=== PATIENT | female | born 1985 | race Caucasian/White ===

== ENCOUNTER 2018-09-20 00:02 | Observation (INO) | payer SELFPAY ==
[~2018-09-20] VITALS: Ht 160 cm; Wt 74.1 kg
[2018-09-20] VITALS (9 sets, daily range): BP systolic 108–133; BP diastolic 53–85
[2018-09-20 03:54] LABS: HEMATOCRIT 39.6 % (36.0-47.0); HEMOGLOBIN 12.9 g/dl (12.0-15.5); MEAN CORPUSCULAR HEMOGLOBIN 30.5 pg (27.0-33.0); MEAN CORPUSCULAR HGB CONC 32.6 g/dl (32.0-36.5); MEAN CORPUSCULAR VOLUME 93.6 fl (80.0-96.0); PLATELET COUNT, AUTOMATED 167 10^3/uL (150-450); RED BLOOD COUNT 4.23 10^6/uL (4.00-5.40); WHITE BLOOD COUNT 7.3 10^3/uL (4.0-10.0)
[2018-09-20 04:16] LABS: BLOOD UREA NITROGEN 12 MG/DL (7-18); CALCIUM LEVEL 7.9 MG/DL (8.5-10.1); CARBON DIOXIDE LEVEL 26 MEQ/L (21-32); CHLORIDE LEVEL 113 MEQ/L (98-107); CREATININE FOR GFR 0.58 MG/DL (0.55-1.30); GLOMERULAR FILTRATION RATE > 60.0 (>60); GLUCOSE, FASTING 104 MG/DL (70-100); POTASSIUM SERUM 4.4 MEQ/L (3.5-5.1); SODIUM LEVEL 143 MEQ/L (136-145)
[2018-09-20] MEDS ORDERED: ESCI10TA2 PO (04:36)
[2018-09-20] MEDS ORDERED: D3 S20002 PO (04:36)
[2018-09-20] MEDS: NS 1,000 ML IV SCH ×2 (05:31→15:57)
--- NOTE | 2018-09-20 05:33 | HPEPDOC ---
General Date of Admission Sep 20, 2018 at 02:41 Date of Service: Sep 20, 2018 Attending Physician: JANELLE KUNZ MD Chief Complaint The patient is a 33-year-old female admitted with a reason for visit of SVT. Source: Patient Exam Limitations: No limitations Timing/Duration: 24 hours History of Present Illness Ms. Maradiaga is a 33-year-old female who presents to [facility] as a direct admission from [facility]. Patient states that she has a history of supraventricular tachycardia (SVT) and she sustained an episode prior to her presentation to [facility]. She describes her attacks as feeling as though her heart goes out of rhythm. She uses several "tricks" at home, but nothing was terminating them so after over an hour she presented to the hospital for further evaluation. She was placed on a heart monitor and found to have a heart rate of 240. She states that she was given Metoprolol 5mg IV, Adenosine 5mg IV, Adenosine 12mg IV, and Cardizem 25mg IV before her rate converted to a junctional rhythm and then finally reverted back to sinus rhythm. However, patient states that although her heart rate decreased so did her blood pressure. She developed crampy abdominal pain with nausea and diarrhea. The hospital administered IV fluids and it was advised that patient be transferred to [facility] under the care of Dr. Kunz, the admitting hospitalist for possible consultation with a cabinetmaker supervisor. Patient states that she has had SVT her entire life. She did have a consultation with a cabinetmaker supervisor when she was 13 years old and wore a heart monitor for 1 week and had an echocardiogram completed. Both tests, as far the patient can recall, were negative. She has presented over the years to the ED for SVT. Her first visit resulted in her following up with her primary care provider at that time who initiated referrals to cardiology; however, nothing ever came to fruition as patient's primary care provider terminated his practice. Her second visit to the ED was after the of her youngest son (who is 1 years old). She was put on Metoprolol at that time. This current presentation is her third for evaluation of SVT. Incidentally, patient has an appointment with Dr. Rangel, pickle processor in [place], for evaluation for rheumatoid arthritis. She is experiencing joint pain, specifically in her right index finger and is currently unable to flex the finger completely. She has previously experienced searing type pains along the dorsal aspect of her right foot, along her right knee, and along her low back. She states that she has been evaluated for Lupus which was negative and that her SHAD was negative as well. She has a strong family history of fibromyalgia. Current ICU evaluation reveals somewhat soft blood pressure of 108/66. Her labs are stable. Hospitalist accepted patient in transfer from [facility] for further evaluation and possible consultation with cardiology. Home Medications Scheduled Cholecalciferol (Vitamin D3) (Vitamin D3) 2,000 Unit Capsule, 2,000 UNIT PO DAILY, (Reported) TAKES AT 1200 Diltiazem HCl (Cardizem) 30 Mg Tablet, 1 TAB PO DAILY Escitalopram Oxalate (Escitalopram Oxalate) 10 Mg Tablet, 10 MG PO QHS, (Reported) Allergies Coded Allergies: Penicillins (Verified Allergy, Intermediate, TROUBLE SWALLOWING, 09/20/18) fluticasone (Verified Allergy, Intermediate, HIVES, 09/20/18) Past Medical History Medical History 1. SVT 2. Depression 3. Vitamin D deficiency Surgical History 1. Diagnostic arthroscopy 2. Left eye surgery during childhood 3. Vaginal deliveries x4 Family History Father: Alive, 56, arthritis, pre-DM Mother: Alive, 56, healthy Siblings - Sister: x1, alive, 33, healthy - Brother: x1, alive, 31, healthy Social History * Smoker: current smoker (< 1/2 PPD) Alcohol: occationally (wine) Drugs: sav[place] Lives with her José Luis gilbert and her 4 biological children and her one step- daughter. Her children vary in age from 13 to 1. She works as a [employer] teacher. She currently smokes < 1 PPD. She consumes wine. She does not use illicit drugs. A-FIB/CHADSVASC A-FIB History Current/History of A-Fib/PAF?: No Review of Systems Constitutional: Denies: Chills, Fever, Night Sweats, Weakness Eyes: Reports: Vision change (tunnel vision); Denies: Conjunctivae inflammation, Eyelid inflammation, Redness ENT: Reports: Head Aches, Other Symptoms (hearing changes); Denies: Dysphagia, Sinus Congestion, Post Nasal Drip, Sore Throat, Epistaxis Skin: Denies: Rash, Lesions Pulmonary: Denies: Dyspnea, Cough, Pleuritic Chest Pain Cardiovascular: Reports: Palpitations; Denies: Chest Pain, Orthopnea, Paroxysmal Noc. Dyspnea, Edema, Lt Headedness Gastrointestinal: Reports: Nausea, Abdominal Pain, Diarrhea; Denies: Vomiting, Constipation, Melena, Hematochezia Genitourinary: Denies: Dysuria, Frequency, Incontinence, Hematuria, Retention Hematologic: Denies: Bruising, Bleeding Excessively Musculoskeletal: Reports: Back Pain, Joint Pain, Muscle Pain; Denies: Neck Pain Neurological: Reports: Weakness; Denies: Numbness Physical Examination General Exam: Positive: Alert, Cooperative, No Acute Distress Eye Exam: Positive: PERRLA, Conjunctiva & lids normal, EOMI; Negative: Sclera icteric, Ptosis ENT Exam: Positive: Atraumatic, Mucous membr. moist/pink, Pharynx Normal, Tongue Midline, Nares Patent; Negative: Pharyngeal Edema Neck Exam: Positive: Supple, +2 carotid pulse wo bruit; Negative: JVD, thyromegaly, Lymphadenopathy Chest Exam: Positive: Clear to auscultation, Normal air movement; Negative: Rales, Rhonchi, Wheezing, Diminished Heart Exam: Positive: Rate Normal, Regular Rhythm, Normal S1, Normal S2; Negative: Gallops, Murmurs, Rubs Telemetry: Positive: Sinus Abdomen Exam: Positive: Normal bowel sounds, Soft; Negative: Tenderness, Hepatospenomegaly, Mass, Hernia Extremity Exam: Positive: Normal pulses; Negative: Clubbing, Cyanosis, Edema, Tenderness, Swelling Skin Exam: Negative: Rash, Lesion Neuro Exam: Positive: Normal Speech, Cranial Nerves 3-12 NL Vital Signs Vital Signs Date Time Temp Pulse Resp B/P (MAP) Pulse Ox O2 Delivery O2 Flow Rate FiO2 09/20/18 04:00 97.9 70 16 108/66 (80) 99 Height (in): 63 Weight (kg): 74.1 BMI (kg): 28.9 Laboratory Data Labs 24H Laboratory Tests 2 09/20/18 03:45: Nucleated Red Blood Cells % (auto) 0.0, Anion Gap 4L, Glomerular Filtration Rate > 60.0, Blood Urea Nitrogen 12, Creatinine 0.58, Sodium Level 143, Potassium Level 4.4, Chloride Level 113H, Carbon Dioxide Level 26, Calcium Level 7.9L CBC/BMP Laboratory Tests 09/20/18 03:45 Red Blood Count 4.23, Mean Corpuscular Volume 93.6, Mean Corpuscular Hemoglobin 30.5, Mean Corpuscular Hemoglobin Concent 32.6, Red Cell Distribution Width 11.9, Calcium Level 7.9 L Plan / VTE VTE Prophylaxis Ordered?: Yes (Lovenox 40mg SQ daily) Plan Plan 1. SVT Converted to NSR with Metoprol, Adenosine, Cardizem NS @ 100 mLs/hr Consider cardiology consult ICU for observation Echocardiogram Monitor VS, labs 2. HoTN 2/2 to aforementioned NS @ 100 mLs/hr IVF resuscitated at [facility] Monitor VS 3. Depression Continue Escitalopram 10mg PO QHS 4. Vitamin D deficiency Continue Vitamin D 2,000 units PO daily 5. Tobacco dependence Smoking cessation counseling Offered nicotine replacement patch; however, patient declined 6. Joint pain Appointment with Dr. Rangel, rheumatology, 11/01/2018 Disposition Admit: ICU Anticipated hospitalization: Observation IVF: Continue (NS @ 100 mLs/hr) Diet: Continue Current (regular) Activity: Continue Current (activity as tolerated) Diagnostics: Check Labs, Repeat Labs in AM, TTE Anticipated Discharge: Home GME ATTESTATION GME ATTESTATION My faculty preceptor for this patient encounter was physically present during the encounter and was fully available. All aspects of the patient interview, examination, medical decision making process, and medical care plan development were reviewed and approved by the faculty preceptor. The faculty preceptor is aware and concurs with the plan as stated in the body of this note and will attest to such by his/her cosignature. ATTENDING NOTE ATTENDING ATTESTATION: I performed a history and physical examination of the patient and discuss the management with the resident/SUPERVISOR REAL ESTATE OFFICE. I reviewed the resident's note and agree with the documented findings and plan of care. BENNIE JULIEN DO Sep 20, 2018 05:33 JANELLE KUNZ MD Sep 20, 2018 19:33
[2018-09-20] MEDS ORDERED: METOPROLOL TART 12.5 MG PER 1/2 TAB PO SCH (09:00)
[2018-09-20] MEDS ORDERED: ENOXAPARIN 40 MG/0.4 ML SYRINGE (J1650) SC SCH ×2 (09:00)
[2018-09-20] MEDS ORDERED: VITAMIN D 1,000 INTERNATIONAL UNITS TABLET PO SCH (12:00)
--- NOTE | 2018-09-20 13:47 | IPNPDOC ---
Text Note Date of Service The patient was seen on 09/20/18. NOTE S: 33 yo female admitted with SVT and iatrogenic hypotension - now rate contro lled. see H&P for details O: Vitals as below/stable General: pleasant, NAD, AAOx3 HRRR LCTA A/P:SVT paroxysmal - consult Dr Ferguson and case discussed. Await echo. start metoprolol 12.5mg with hold parameters. Discussed with patient and states she had been on metoprolol in past and experienced extreme fatigue. Consider low dose cardizem for rescue if SVT reoccurs. Possible discharge this evening. transfer to M/S with tele VS,Shemar, I+O VS, Shemar, I+O Laboratory Tests 09/20/18 03:45 Red Blood Count 4.23, Mean Corpuscular Volume 93.6, Mean Corpuscular Hemoglobin 30.5, Mean Corpuscular Hemoglobin Concent 32.6, Red Cell Distribution Width 1 1.9, Calcium Level 7.9 L Vital Signs Date Time Temp Pulse Resp B/P (MAP) Pulse Ox O2 Delivery O2 Flow Rate FiO2 09/20/18 04:00 97.9 70 16 108/66 (80) 99 RENAE WELLS DO Sep 20, 2018 13:04
[2018-09-20] MEDS ORDERED: CARD40TA PO (19:23)
--- NOTE | 2018-09-20 19:34 | DS.PDOC ---
Discharge Summary General Date of Admission Sep 20, 2018 at 02:41 Date of Discharge 09/20/18 at 1924 Attending Physician: RENAE WELLS DO Specialist/Consultants Involve: ELIU KIM MD Discharge Summary PROCEDURES PERFORMED DURING STAY: cardiac echo ADMITTING DIAGNOSES: 1. paroxysmal SVT 2. iatrogenic hypotension with bradycardia DISCHARGE DIAGNOSES: 1. parosyxmal SVT 2. iatrogenic hypotension with bradycardia COMPLICATIONS/CHIEF COMPLAINT: SVT. HISTORY OF PRESENT ILLNESS: 33 yo female transferred from outside hospital with iatrogenic hypotension and bradycardia. she initially presented with SVT rate 240's , no relief with vagal maneuvers. She was given 5mg IV metoprolol, 6mg IV adenocard, 12mg IV adenocard and 20mg IV cardizem with return to NSR and then bradycardia/hypotension. HOSPITAL COURSE: pateint placed under observation. HR and BP stabilized and remained NSR during her short observation stay. cardiology consulted and echo performed. Dr Kim recommended trial of cardizem low dose PO and will follow up in office. patient is being discharged in stable and improved condition. DISCHARGE MEDICATIONS: Please see below. ALLERGIES: Please see below. PHYSICAL EXAMINATION ON DISCHARGE: VITAL SIGNS: Please see below. HRRR no murmur LCTA no W/R/R LABORATORY DATA: Please see below. PROGNOSIS: good ACTIVITY: as tolerated DIET:regular, avoid caffeine DISCHARGE PLAN: f/u with cardiology - Dr Kim in 2-4 weeks DISPOSITION: home DISCHARGE INSTRUCTIONS: 1. cardizem 30mg daily as directed by Dr Kim ITEMS TO FOLLOWUP ON ON OUTPATIENT: none DISCHARGE CONDITION: stable TIME SPENT ON DISCHARGE: Greater than 20 minutes. Vital Signs/I&Os Vital Signs Date Time Temp Pulse Resp B/P (MAP) Pulse Ox O2 Delivery O2 Flow Rate FiO2 09/20/18 16:00 97.5 71 16 133/85 (101) 99 I&O- Last 24 Hours up to 6 AM 09/20/18 06:00 Intake Total 800 ml Balance 800 ml Laboratory Data Labs 24H Laboratory Tests 2 09/20/18 03:45: Nucleated Red Blood Cells % (auto) 0.0, Anion Gap 4L, Glomerular Filtration Rate > 60.0, Blood Urea Nitrogen 12, Creatinine 0.58, Sodium Level 143, Potassium Level 4.4, Chloride Level 113H, Carbon Dioxide Level 26, Calcium Level 7.9L CBC/BMP Laboratory Tests 09/20/18 03:45 Red Blood Count 4.23, Mean Corpuscular Volume 93.6, Mean Corpuscular Hemoglobin 30.5, Mean Corpuscular Hemoglobin Concent 32.6, Red Cell Distribution Width 11.9, Calcium Level 7.9 L Discharge Medications Scheduled Cholecalciferol (Vitamin D3) (Vitamin D3) 2,000 Unit Capsule, 2,000 UNIT PO DAILY, (Reported) TAKES AT 1200 Diltiazem HCl (Cardizem) 30 Mg Tablet, 1 TAB PO DAILY Escitalopram Oxalate (Escitalopram Oxalate) 10 Mg Tablet, 10 MG PO QHS, (Reported) Allergies Coded Allergies: Penicillins (Verified Allergy, Intermediate, TROUBLE SWALLOWING, 09/20/18) fluticasone (Verified Allergy, Intermediate, HIVES, 09/20/18) RENAE WELLS DO Sep 20, 2018 19:34
--- NOTE | 2018-09-20 20:54 | ECHO ---
DATE OF PROCEDURE: 09/20/2018 AGE: 33 GENDER: Female HEIGHT: 63 inches WEIGHT: 163 pounds BODY SURFACE AREA: 1.77 m2 PATIENT LOCATION: Inpatient, ICU, room 3204 REFERRING PHYSICIAN: Amy Mahoney DO INDICATION: Cardiac dysrhythmia (PSVT). 2-D MEASUREMENTS: RV: 3.4 cm LV: 4.5 cm Septum: 0.9 cm Posterior wall: 0.9 cm Aortic root: 2.8 cm LA: 3.4 cm LVEF: 65% DOPPLER MEASUREMENTS: AV: 1.4 m/s LVOT: 1.0 m/s LVOT diameter: 2.0 cm MV-E: 99, A: 55, EA ratio: 1.8 Early mitral deceleration time: 232 ms E prime: 10.7, A prime: 8, E/E prime ratio: 9.2 PV: 0.9 m/s Pulmonary artery acceleration time: 140 ms RVSP: 24 mmHg IVC: 2.2 cm COMMENTS: Normal sinus rhythm without intraventricular conduction disturbance. M-mode and two-dimensional echocardiography was performed with pulsed, continuous wave, color flow and tissue Doppler studies. Normal left ventricular size, wall thickness and wall motion. Normal left atrial size and Doppler assessment of LV diastolic function and estimated mean left atrial pressure. Normal right heart chamber sizes and motion and estimated pulmonary arterial pressure. Normal IVC size and collapse against an elevated central venous pressure. Normal appearing and functioning valvular structures. Normal aortic dimensions. No apparent intracardiac mass or pericardial effusion.
[2018-09-20] MEDS ORDERED: ESCITALOPRAM OXALATE 10 MG TAB (LEXAPRO) PO SCH (21:00)
--- NOTE | 2018-09-21 07:16 | CR ---
DATE OF CONSULTATION: 09/20/2018 REFERRING PROVIDER: Dr. Amy Mahoney REASON FOR CONSULTATION: Supraventricular tachycardia. Status post hypotensive episode. PRIMARY PROVIDER: [facility]. HISTORY OF PRESENT ILLNESS: 33-year-old woman with a long history of supraventricular tachycardia that has been erratic went to [facility] Emergency Room (ER) after having palpitations for about 60-90 minutes. Upon arrival there, she was in a supraventricular tachycardia reported as per patient to be 220 beats per minute. She was given intravenous (IV) Lopressor, IV Cardizem, and IV adenosine, and she spontaneously cardioverted first to a junctional rhythm, then sinus rhythm. In the process, she became hypotensive and she was symptomatic with nausea, abdominal pain, and diarrhea associated with dizziness. She will started on IV fluids, then transferred here to [facility] for further management and monitoring. She was monitored in the intensive care unit (ICU)/critical care unit (CCU). The case was discussed this morning with the hospitalist, and the plan was to discharge home today if she remains stable and if her echocardiogram is benign. When I saw Mrs. Tete Maradiaga this evening, she was in supine in bed in no acute distress at rest and her is at bedside. She stated that she has had episodes of supraventricular tachycardia (SVT) on and off and they are erratic. She can go weeks without having them but lately, they have been lasting longer and she has been more symptomatic with them. On the most recent episode, this was associated with dizziness and lightheadedness, tunnel vision, but no syncope. She has no cough or hemoptysis or fever. In the past, she was on metoprolol but could not tolerate it because of fatigue. She has occasional heartburn. She has no focal manifestation. She has occasional pedal edema. She has a past medical history positive for anxiety/depression. She denies any history of hypertension, hyperlipidemia, diabetes mellitus, significant valvular heart disease, syncope, cardiomyopathy, sudden cardiac . She denies any kidney disease, liver disease, thyroid disorders. MEDICATIONS AT HOME: - escitalopram 10 mg by mouth daily at hour of sleep - vitamin D PAST SURGICAL HISTORY: Is positive for left eye surgery in her childhood, and she has had four vaginal deliveries. She also has had diagnostic laparoscopy. FAMILY HISTORY: Is positive for SVT, her father. SOCIAL HISTORY: Patient lives with her who was present in the room when I saw her. She is a former smoker, and she had recently stopped. She was a kind of social smoker. She denies any ethyl alcohol (EtOH) abuse or illicit drugs. ALLERGIES: To PENICILLIN, and adverse reaction describes trouble swallowing. FLUTICASONE, and adverse reaction describes hives. ADVANCE DIRECTIVES: Patient is a FULL CODE. PHYSICAL EXAMINATION: Patient is alert and oriented, in no acute distress at rest. Her most recent vital signs revealed a blood pressure of 133/85 with a pulse of 71, respirations 16, and her maximum temperature is 97.5 degrees Fahrenheit with an oxygen saturation of 99% on room air. Examination of the head: Atraumatic. Neck is supple, and no carotid bruits appreciated. The lungs were clear bilaterally on auscultation without any wheezing or crackles. The heart examination revealed a regular heart sound without gallops. The point of maximal impulse (PMI) is not displaced. There is no rub. I could not appreciate any murmurs. Abdomen is unremarkable. Extremities revealed no pedal edema, and peripheral pulses, dorsalis pedis were +2 and equal. Neurologic examination is negative for focal deficit. LABS: CBC revealed a WBC of 7.3, hemoglobin 12.9, hematocrit 39.6, and platelet 167,000. BMP revealed a sodium of 143, potassium 4.4, chloride 113, CO2 of 26, BUN 12, creatinine 0.58, GFR more than 60, fasting glucose 104, and calcium 7.9. Echocardiogram was done today and reviewed, and left ventricular ejection fraction (LVEF) is normal and only minimal valvular heart disease noted. Official report is pending. IMPRESSION: 1. Supraventricular tachycardia, symptomatic, and patient has tried a beta-cecilio in the past but could not tolerate it. Case was discussed with the hospitalist, and she will be discharged home on a small dose of calcium channel cecilio with Cardizem. We have discussed about more invasive treatment, such as ablation, and she wants to proceed. This will be arranged for her as outpatient. She will be called for a followup. She is well aware about Valsalva maneuvers. 2. Status post hypotensive episode, related to the IV Cardizem and IV metoprolol. Blood pressure when I saw her was normal. 3. Vitamin D deficiency and has been on supplement. 4. History of anxiety/depression, being addressed and on medication. It was a pleasure to see . Tete Maradiaga for her underlying cardiac condition. Once again, she is stable and can be discharged home and she will be called for an appointment and she will be referred to see an ruffler in [place], [place]. She will call her primary at the [facility] for an appointment.
== END 2018-09-20 20:19 | disposition home or self-care (01) ==
LOC: M ICU 02:41 → INTOOBSV 02:41
PROVIDERS: ADMIT Student in an Organized Health Care Education/Training Program; ATTEND Student in an Organized Health Care Education/Training Program
DX: I47.1 Supraventricular tachycardia (principal); I95.89 Other hypotension; R00.1 Bradycardia, unspecified; F32.9 Major depressive disorder, single episode, unspecified; E55.9 Vitamin D deficiency, unspecified; M25.50 Pain in unspecified joint; Z79.899 Other long term (current) drug therapy; Z88.0 Allergy status to penicillin; Z88.8 Allergy status to other drugs, medicaments and biological substances; F17.210 Nicotine dependence, cigarettes, uncomplicated